=== PATIENT | male | born 1945 | race Caucasian/White ===

== ENCOUNTER 2022-12-11 12:07 | Emergency (ER) | payer OTHER ==
[~2022-12-11] VITALS: Ht 177.8 cm; Wt 54.4 kg
[2022-12-11 12:28] VITALS: BP_SYST 114
--- NOTE | 2022-12-11 12:40 | NUR ---
PT BIBA AWAKE AND ALERT, AOX4. NO SOB OR DISTRESS. PT HAD A MECHANICAL FALL, AFTER GETTING OUT OF BED, FROM HIS [employer] TODAY. PT STATES PAIN 6/10. PT HAS BLOODY NOSE, AND REDDNESS TO L EYE.
--- NOTE | 2022-12-11 12:45 | NUR ---
MD DR FLOREZ AT BEDSIDE
[2022-12-11 13:24] LABS: BASOPHILS # (AUTO) 0.1 K/uL (0.0-0.2); BASOPHILS % (AUTO) 0.9 % (0.0-2.0); EOSINOPHILS % (AUTO) 0.1 % (0.0-4.0); HEMATOCRIT 34.9 % (36-54); HEMOGLOBIN 11.7 g/dL (14.0-18.0); LYMPHOCYTES # (AUTO) 0.8 K/uL (1.0-5.5); LYMPHOCYTES % (AUTO) 12.3 % (20.5-51.5); MEAN CORPUSCULAR HEMOGLOBIN 28 pg (27-31); MEAN CORPUSCULAR HGB CONC 33 % (32-36); MEAN CORPUSCULAR VOLUME 83 fL (79.0-98.0); MONOCYTES # (AUTO) 0.6 K/uL (0.0-1.0); MONOCYTES % (AUTO) 8.9 % (1.7-9.3); NEUTROPHILS # (AUTO) 5.2 K/uL (1.8-7.7); NEUTROPHILS % (AUTO) 77.8 % (40.0-70.0); PLATELET COUNT (AUTO) 103 K/uL (130-430); RED BLOOD CELL COUNT(AUTO) 4.23 MIL/uL (4.2-6.2); RED CELL DISTRIBUTION WIDTH 15.6 % (9.0-15.0); WHITE BLOOD COUNT (AUTO) 6.7 K/uL (4.8-10.8)
[2022-12-11 13:53] LABS: ALANINE AMINOTRANSFERASE 19 U/L (12-78); ANION GAP 12 (5-15); ASPARTATE AMINOTRANSFERASE 7 U/L (10-37); CALCIUM 9.6 mg/dL (8.4-11.0); CHLORIDE 92 mmol/L (98-107); CREATININE 1.47 mg/dL (0.55-1.30); TOTAL BILIRUBIN 1.3 mg/dL (0.0-1.0); UREA NITROGEN, BLOOD 38 mg/dL (8-21)
[2022-12-11 13:55] LABS: GLUCOSE 533 mg/dL (70-99)
[2022-12-11 13:58] LABS: BILIRUBIN,URINE NEGATIVE (NEGATIVE); BLOOD, URINE NEGATIVE (NEGATIVE); CLARITY/URINE CLEAR (CLEAR); COLOR,URINE YELLOW (YELLOW); GLUCOSE,URINE 3+ (NEGATIVE); KETONES,URINE 1+ (NEGATIVE); LEUKOCYTE ESTERASE ,URINE NEGATIVE (NEGATIVE); NITRITE, URINE NEGATIVE (NEGATIVE); PH,URINE 5.5 (5.0-8.0); PROTEIN URINE NEGATIVE (NEGATIVE); UROBILINOGEN,URINE 0.2 (0.2-1.0)
[2022-12-11] MEDS ORDERED: INSULIN REGULAR, HUMAN 10 UNITS/0.1 ML, 3 ML VIAL IVP ONE (14:00)
[2022-12-11] MEDS ORDERED: NACL 0.9% 1,000 ML IV ONE (14:00)
--- NOTE | 2022-12-11 14:13 | NUR ---
SWABBED FOR COVID
[2022-12-11 14:17] LABS: BACTERIA,URINE FEW /HPF (None Seen); RBC,URINE 0-3 /HPF (0-3); WBC,URINE 0-3 /HPF (0-3)
[2022-12-11 14:18] LABS: MUCUS,URINE 1+ /LPF (None Seen)
[2022-12-11] MEDS ORDERED: INSULIN REGULAR, HUMAN 10 UNITS/0.1 ML, 3 ML VIAL ONE (14:26)
[2022-12-11 19:33] VITALS: BP_SYST 135
--- NOTE | 2022-12-11 19:35 | NUR ---
Patient given written and verbal discharge instructions and verbalizes understanding. ER MD DR TINAJERO discussed with patient the results and treatment provided. Patient in stable condition. ID arm band removed. IV catheter removed intact and dressing applied, no active bleeding. Patient educated on pain management and to follow up with PMD. Pain Scale 2/10. Opportunity for questions provided and answered. Medication side effect fact sheet provided.
== END 2022-12-11 19:33 | disposition home or self-care (01) ==
LOC: SED 12:07
DX: S09.90XA Unspecified injury of head, initial encounter (principal); E11.65 Type 2 diabetes mellitus with hyperglycemia; R73.9 Hyperglycemia, unspecified; E86.0 Dehydration; E87.1 Hypo-osmolality and hyponatremia; I10 Essential (primary) hypertension; Z79.899 Other long term (current) drug therapy; W01.0XXA Fall on same level from slipping, tripping and stumbling without subsequent striking against object, initial encounter; Y93.89 Activity, other specified; Y92.000 Kitchen of unspecified non-institutional (private) residence as the place of occurrence of the external cause; Y99.8 Other external cause status
CPT/HCPCS: 99285; 70450; 96374; 71045; 96361; 80053; 81000; 85025; 87040; 36415; 93005; 72125; 72192; 83605; 76376; J7030; J1815